=== PATIENT | female | born 1995 | race Two or more races ===

== ENCOUNTER 2017-12-30 08:24 | Outpatient (CLI) | payer OTHER | END 2017-12-30 08:28 | disposition home or self-care (01) | LOC: SONOGRAMA 08:24 | DX: E04.2 Nontoxic multinodular goiter (principal) ==

== ENCOUNTER 2018-07-22 14:57 | Outpatient (CLI) | payer OTHER | END 2018-07-22 15:12 | disposition home or self-care (01) | LOC: NUCLEAR 14:57 | DX: C73 Malignant neoplasm of thyroid gland (principal); E89.0 Postprocedural hypothyroidism | CPT/HCPCS: A9517; 79005 ==